=== PATIENT | male | born 1985 | race African-American/Black ===

== ENCOUNTER 2024-01-14 12:47 | Emergency (ER) | payer OTHER ==
[2024-01-14 12:56] VITALS: BP 117/60; PULSE 91; RESP 19; TEMP 99.6; BMI 23.6
[2024-01-14] MEDS ORDERED: IBUPROFEN 600 MG TABLET (FP) PO ONE (13:22)
[2024-01-14] MEDS: IBUPROFEN 600 MG TABLET (FP) PO ONE (13:37)
[2024-01-14 13:38] LABS: BASO % 0.7 % (0-2.0); EOS % 0.2 % (0-4.5); HEMATOCRIT 41.5 % (35.4-49); HEMOGLOBIN 13.6 GM/dL (11.7-16.9); LYMPH % 6.6 % (8-40); MCH 30.4 pg (25.7-33.7); MCHC 32.7 g/dl (32.0-35.9); MEAN CELL VOLUME 92.9 fl (80-96); MONO % 3.3 % (3.8-10.2); NEUT % 89.2 % (42.8-82.8); PLATELET COUNT 240 10^3/uL (134-434); RBC 4.47 M/mm3 (4.00-5.60); RDW 14.6 % (11.9-15.9); WHITE BLOOD COUNT 12.7 K/mm3 (4.0-10.0)
[2024-01-14 13:46] LABS: INR 1.1 (0.83-1.09); PROTHROMBIN TIME (PATIENT) 12.4 SEC (9.7-13.0)
[2024-01-14 13:49] LABS: ACTIVATED PTT 30.7 SECONDS (25.2-36.5)
[2024-01-14 13:49] LABS: VENOUS BASE EXCESS 3.1 mmol/L (-2-2); VENOUS O2 SATURATION 92.8 % (70-80); VENOUS PCO2 44.3 mmHg (38-52); VENOUS PH 7.42 (7.310-7.410)
[2024-01-14 13:57] LABS: POTASSIUM 3.8 mmol/L (3.5-5.1)
[2024-01-14 14:00] LABS: ALBUMIN 3.5 g/dl (3.4-5.0); BLOOD UREA NITROGEN 10.7 mg/dL (7-18); MAGNESIUM 1.8 mg/dL (1.8-2.4)
[2024-01-14 14:05] LABS: BILIRUBIN,TOTAL 0.8 mg/dL (0.2-1); TOT PROT 6.4 g/dl (6.4-8.2)
[2024-01-14] MEDS ORDERED: AZITHROMYCIN IVPB 500 MG/250 ML BAG IVPB ONE (14:38)
[2024-01-14] MEDS ORDERED: CEFTRIAXONE 1 GM/50 ML BAG ONE (14:38)
[2024-01-14] MEDS: AZITHROMYCIN IVPB 500 MG in DEXTROSE 5%-WATER - 250 ML IVPB ONE (14:52)
[2024-01-14] MEDS: LACTATED RINGERS SOLUTION 1000 ML INFUS.BAG IV ONE (15:24)
== END 2024-01-14 17:15 | disposition left against medical advice (07) ==
LOC: JER 12:47
DX: J18.9 Pneumonia, unspecified organism (principal); R06.02 Shortness of breath; R09.81 Nasal congestion; R05.9 Cough, unspecified; R50.9 Fever, unspecified; R07.9 Chest pain, unspecified; Z20.822 Contact with and (suspected) exposure to COVID-19
CPT/HCPCS: 0241U-QW; 36415; 71046-TC-FY; 80053; 82803; 83735; 84484; 85025; 85610; 85730; 93005; 93010; 99285-25